=== PATIENT | female | born 1980 | race Caucasian/White ===

== ENCOUNTER 2016-08-11 08:51 | Emergency (ER) | payer BC ==
[2016-08-11] MEDS ORDERED: NS 0.9% 1000 ML* 1,000 ML IV ONE ×2 (11:06→12:41)
[2016-08-11] MEDS ORDERED: Ondansetron INJ* 2 MG/ML VIAL IV ONE ×2 (11:06→14:03)
[2016-08-11 11:50] LABS: Hematocrit 33 % (35-47); Hemoglobin 10.6 g/dl (12.0-16.0); Mean Corpuscular HGB Conc 32 g/dl (31-36); Mean Corpuscular Hemoglobin 27 pg (27-31); Mean Corpuscular Volume 84 fL (80-97); Mean Platelet Volume 9 um3 (7.4-10.4); Red Blood Count 3.88 10^6/ul (4.0-5.4); Red Cell Distribution Width 15 % (10.5-15)
--- NOTE | 2016-08-11 11:54 | RAD ---
Indication: Cough. 2 views of the chest including dual energy PA views demonstrate no mediastinal shift. Heart is of normal size and configuration. Lung brown demonstrate no pleural fluid, pneumonia or pneumothorax. IMPRESSION: No active cardiopulmonary disease is noted.
[2016-08-11 12:06] LABS: ALT 23 U/L (7-52); AST 20 U/L (13-39); Alkaline Phosphatase 49 U/L (34-104); BUN/Creatinine Ratio 8.8 (8-20); Blood Urea Nitrogen 5 mg/dL (6-24); C Reactive Protein 29.19 mg/L (< 5.00); CO2 Carbon Dioxide 26 mmol/L (22-32); Calcium 8.7 mg/dL (8.6-10.3); Chloride 103 mmol/L (101-111); EGFR African American 153.5 (>60); EGFR Non-African American 119.3 (>60); Globulin 3.8 g/dL (2-4); Glucose 89 mg/dL (70-100); Sodium 139 mmol/L (133-145); Total Protein 7.8 g/dL (6.4-8.9)
[2016-08-11 12:08] LABS: Troponin I 0.01 ng/mL (<0.04)
[2016-08-11 12:09] LABS: Urine Bacteria Absent (Absent); Urine Bilirubin Negative (Negative); Urine Glucose Negative (Negative); Urine Nitrite Negative (Negative)
[2016-08-11 12:14] LABS: Anion Gap 10 mmol/L (2-11); Potassium 2.7 mmol/L (3.5-5.0)
[2016-08-11] MEDS ORDERED: KCL 20 MEQ/100 ML IVPREMIX* 20 MEQ/100 ML BAG IV ONE (12:41)
[2016-08-11] MEDS ORDERED: Potassium Chlor TAB* 20 MEQ TAB.ER PO ONE (12:42)
[2016-08-11] MEDS ORDERED: Ondansetron INJ* 2 MG/ML VIAL ONE (14:03)
[2016-08-11] MEDS ORDERED: Acetaminophen TAB* 325 MG PO ONE (15:15)
[2016-08-11] MEDS ORDERED: Acetaminophen TAB* 325 MG ONE (15:17)
[2016-08-11 16:51] VITALS: BP 94/52
--- NOTE | 2016-08-12 07:34 | ED ---
Yuriy Vieyra Adam, scribed for Lake Guzman MD on 08/11/16 at 1051 . Complex/Multi-Sys Presentation - HPI Summary HPI Summary: Pt is a 36 year old female presenting with worsening URI, fever, and N/V. The URI symptoms consist of cough and chest congestion that set on 7 days ago and have been growing worse. She has also had decreased appetite and difficulty tolerating PO intake without vomiting for the past 7 days. She states that she has had a fever that set on 5 days ago. Currently she c/o cough, chest pain, and nausea. She denies diarrhea. She had a flu shot in April. Pt has PMHx of Crohn's but she states that she has not felt this sick in a long time. Surgical Hx of appy and bowel resection. - History Of Current Complaint Chief Complaint: EDGeneral Time Seen by Provider: 08/11/16 10:34 Hx Obtained From: Patient Onset/Duration: Gradual Onset, Lasting Days, Still Present Timing: Constant Severity Currently: Moderate Severity Initially: Mild Aggravating Factor(s): Nothing Alleviating Factor(s): Nothing Associated Signs And Symptoms: Positive: Cough, Chest Pain, Nausea, Vomiting, Fever. Negative: Diarrhea - Allergies/Home Medications Allergies/Adverse Reactions: Allergies Allergy/AdvReac Type Severity Reaction Status Date / Time No Known Allergies Allergy Verified 08/11/16 08:57 PMH/Surg Hx/FS Hx/Imm Hx Endocrine/Hematology History: Denies: Hx Diabetes Cardiovascular History: Denies: Hx Congestive Heart Failure, Hx Hypertension GI History: Reports: Hx Crohn's Disease, Other GI Disorders - CROHNS DISEASE History: Reports: Hx Kidney Stones Denies: Hx Renal Disease Sensory History: Reports: Hx Contacts or Glasses Opthamlomology History: Reports: Hx Contacts or Glasses - Surgical History Surgery Procedure, Year, and Place: BOWEL RESECTION 2010, appendix removed at same time Hx Anesthesia Reactions: No - Immunization History Date of Tetanus Vaccine: unknown Infectious Disease History: No Infectious Disease History: Denies: Traveled Outside the [place] in Last 30 Days - Family History Known Family History: Positive: None - Reviewed and noncontributory - Social History Occupation: Employed Full-time Lives: Alone Alcohol Use: None Hx Substance Use: No Substance Use Type: Reports: None Hx Tobacco Use: No Smoking Status (MU): Never Smoked Tobacco Review of Systems Positive: Fever Positive: Chest Pain Positive: Cough Positive: Vomiting, Nausea. Negative: Diarrhea All Other Systems Reviewed And Are Negative: Yes Physical Exam Triage Information Reviewed: Yes Vital Signs On Initial Exam: Initial Vitals Temp Pulse Resp BP Pulse Ox 98.2 F 91 16 122/65 100 08/11/16 08:52 08/11/16 08:52 08/11/16 08:52 08/11/16 08:52 08/11/16 08:52 Vital Signs Reviewed: Yes Appearance: Positive: Well-Appearing, No Pain Distress Skin: Positive: Warm, Skin Color Reflects Adequate Perfusion, Dry Head/Face: Positive: Normal Head/Face Inspection Eyes: Positive: Normal ENT: Positive: Other - Nasal congestion Neck: Positive: Supple, Nontender Respiratory/Lung Sounds: Positive: Clear to Auscultation, Breath Sounds Present Cardiovascular: Positive: RRR Abdomen Description: Positive: Nontender, Soft Bowel Sounds: Positive: Present Musculoskeletal: Positive: Normal Neurological: Positive: Normal Psychiatric: Positive: Normal, Affect/Mood Appropriate Diagnostics - Vital Signs Vital Signs Temp Pulse Resp BP Pulse Ox 08/11/16 08:52 98.2 F 91 16 122/65 100 - Laboratory Lab Results: Lab Results 08/11/16 08/11/16 08/11/16 Range/Units 11:30 11:30 11:30 WBC 10.0 (3.5-10.8) 10^3/ul RBC 3.88 L (4.0-5.4) 10^6/ul Hgb 10.6 L (12.0-16.0) g/dl Hct 33 L (35-47) % MCV 84 (80-97) fL MCH 27 (27-31) pg MCHC 32 (31-36) g/dl RDW 15 (10.5-15) % Plt Count 175 (150-450) 10^3/ul MPV 9 (7.4-10.4) um3 Neut % (Auto) 82.8 (38-83) % Lymph % (Auto) 13.8 L (25-47) % Simpson % (Auto) 3.2 (1-9) % Eos % (Auto) 0 (0-6) % Baso % (Auto) 0.2 (0-2) % Absolute Neuts (auto) 8.3 H (1.5-7.7) 10^3/ul Absolute Lymphs (auto) 1.4 (1.0-4.8) 10^3/ul Absolute Monos (auto) 0.3 (0-0.8) 10^3/ul Absolute Eos (auto) 0 (0-0.6) 10^3/ul Absolute Basos (auto) 0 (0-0.2) 10^3/ul Absolute Nucleated RBC 0 10^3/ul Nucleated RBC % 0 INR (Anticoag Therapy) 1.02 (0.89-1.11) Sodium (133-145) mmol/L Potassium (3.5-5.0) mmol/L Chloride (101-111) mmol/L Carbon Dioxide (22-32) mmol/L Anion Gap (2-11) mmol/L BUN (6-24) mg/dL Creatinine (0.51-0.95) mg/dL Est GFR ( Amer) (>60) Est GFR (Non-Af Amer) (>60) BUN/Creatinine Ratio (8-20) Glucose (70-100) mg/dL Lactic Acid (0.5-2.0) mmol/L Calcium (8.6-10.3) mg/dL Total Bilirubin (0.2-1.0) mg/dL AST (13-39) U/L ALT (7-52) U/L Alkaline Phosphatase (34-104) U/L Troponin I (<0.04) ng/mL C-Reactive Protein (< 5.00) mg/L Total Protein (6.4-8.9) g/dL Albumin (3.2-5.2) g/dL Globulin (2-4) g/dL Albumin/Globulin Ratio (1-3) Beta HCG, Quant mIU/mL Urine Color Yellow Urine Appearance Clear Urine pH 5.0 (5-9) Ur Specific [place] 1.019 (1.010-1.030) Urine Protein Negative (Negative) Urine Ketones 2+ H (Negative) Urine Blood 3+ H (Negative) Urine Nitrate Negative (Negative) Urine Bilirubin Negative (Negative) Urine Urobilinogen Negative (Negative) Ur Leukocyte Esterase Negative (Negative) Urine WBC (Auto) Trace(0-5/hpf) (Absent) Urine RBC (Auto) 2+(6-10/hpf) H (Absent) Ur Squamous Epith Cells Present H (Absent) Urine Bacteria Absent (Absent) Urine Glucose Negative (Negative) Influenza A (Rapid) (Negative) Influenza B (Rapid) (Negative) 08/11/16 08/11/16 08/11/16 Range/Units 11:30 11:30 11:58 WBC (3.5-10.8) 10^3/ul RBC (4.0-5.4) 10^6/ul Hgb (12.0-16.0) g/dl Hct (35-47) % MCV (80-97) fL MCH (27-31) pg MCHC (31-36) g/dl RDW (10.5-15) % Plt Count (150-450) 10^3/ul MPV (7.4-10.4) um3 Neut % (Auto) (38-83) % Lymph % (Auto) (25-47) % Simpson % (Auto) (1-9) % Eos % (Auto) (0-6) % Baso % (Auto) (0-2) % Absolute Neuts (auto) (1.5-7.7) 10^3/ul Absolute Lymphs (auto) (1.0-4.8) 10^3/ul Absolute Monos (auto) (0-0.8) 10^3/ul Absolute Eos (auto) (0-0.6) 10^3/ul Absolute Basos (auto) (0-0.2) 10^3/ul Absolute Nucleated RBC 10^3/ul Nucleated RBC % INR (Anticoag Therapy) (0.89-1.11) Sodium 139 (133-145) mmol/L Potassium 2.7 L* (3.5-5.0) mmol/L Chloride 103 (101-111) mmol/L Carbon Dioxide 26 (22-32) mmol/L Anion Gap 10 (2-11) mmol/L BUN 5 L (6-24) mg/dL Creatinine 0.57 (0.51-0.95) mg/dL Est GFR ( Amer) 153.5 (>60) Est GFR (Non-Af Amer) 119.3 (>60) BUN/Creatinine Ratio 8.8 (8-20) Glucose 89 (70-100) mg/dL Lactic Acid 0.9 (0.5-2.0) mmol/L Calcium 8.7 (8.6-10.3) mg/dL Total Bilirubin 0.40 (0.2-1.0) mg/dL AST 20 (13-39) U/L ALT 23 (7-52) U/L Alkaline Phosphatase 49 (34-104) U/L Troponin I 0.01 (<0.04) ng/mL C-Reactive Protein 29.19 H (< 5.00) mg/L Total Protein 7.8 (6.4-8.9) g/dL Albumin 4.0 (3.2-5.2) g/dL Globulin 3.8 (2-4) g/dL Albumin/Globulin Ratio 1.1 (1-3) Beta HCG, Quant < 0.60 mIU/mL Urine Color Urine Appearance Urine pH (5-9) Ur Specific [place] (1.010-1.030) Urine Protein (Negative) Urine Ketones (Negative) Urine Blood (Negative) Urine Nitrate (Negative) Urine Bilirubin (Negative) Urine Urobilinogen (Negative) Ur Leukocyte Esterase (Negative) Urine WBC (Auto) (Absent) Urine RBC (Auto) (Absent) Ur Squamous Epith Cells (Absent) Urine Bacteria (Absent) Urine Glucose (Negative) Influenza A (Rapid) Negative (Negative) Influenza B (Rapid) Negative (Negative) Result Diagrams: 08/11/16 11:30 08/11/16 11:30 Lab Statement: Any lab studies that have been ordered have been reviewed, and results considered in the medical decision making process. - Radiology CXR Xray Interpretation: No Acute Changes Radiology Interpretation Completed By: Radiologist - Additional Comments Diagnostic Additional Comments: Potassium - 2.7 Troponin I - 0.01 Influenza A (Rapid) - Negative Influenza B (Rapid) - Negative Complex Multi-Symp Course/Dx Course Of Treatment: Bethany Shaffer presented C/O viral-like symptoms of URI and nausea making her unable to eat. She reported fevers and was afebrile here in the ED. She is on Remicaid for Crohn's and therefore had a septic W/U here which proved negative. Meanwhile she was rehydrated and treated symptomatically. - Diagnoses Provider Diagnoses: Viral syndrome Discharge - Discharge Plan Condition: Stable Disposition: HOME Prescriptions: Ondansetron ODT TAB* [Zofran Odt TAB*] 4 mg PO Q6H PRN #20 tab.odt MDD 4 PRN Reason: Nausea Patient Education Materials: Viral Syndrome (ED) Referrals: Paula FLORES,Levi Jacinto [Primary Care Provider] - Additional Instructions: Follow up with Dr. Mitchell. The documentation as recorded by the Yuriy zaragoza Adam accurately reflects the service I personally performed and the decisions made by me, Lake Guzman MD.
== END 2016-08-11 16:50 | disposition home or self-care (01) ==
LOC: ED 08:51
DX: B34.9 Viral infection, unspecified (principal); R05 Cough; R07.9 Chest pain, unspecified; R11.2 Nausea with vomiting, unspecified
CPT/HCPCS: 36415; 71020; 80053; 81003; 81015; 83605; 84484; 84702; 85025; 85610; 86140; 87502; 96361; 96374; 99283; A9270-GY; J2405; J3480

== ENCOUNTER 2016-08-12 20:53 | Emergency (ER) | payer BC ==
[2016-08-12] MEDS ORDERED: NS 0.9% 1000 ML* 1,000 ML IV ONE (22:59)
[2016-08-12] MEDS ORDERED: Ondansetron INJ* 2 MG/ML VIAL IV ONE (23:00)
[2016-08-12] MEDS ORDERED: guaiFENesin/CODIEN 100MG-10MG* 5 ML UDC PO ONE (23:01)
[2016-08-12 23:31] LABS: Hematocrit 33 % (35-47); Hemoglobin 10.6 g/dl (12.0-16.0); Mean Corpuscular HGB Conc 32 g/dl (31-36); Mean Corpuscular Hemoglobin 28 pg (27-31); Mean Corpuscular Volume 85 fL (80-97); Mean Platelet Volume 9 um3 (7.4-10.4); Red Blood Count 3.87 10^6/ul (4.0-5.4); Red Cell Distribution Width 15 % (10.5-15); White Blood Count 9.1 10^3/ul (3.5-10.8)
[2016-08-12 23:47] LABS: ALT 22 U/L (7-52); AST 19 U/L (13-39); Albumin 3.9 g/dL (3.2-5.2); Alkaline Phosphatase 48 U/L (34-104); BUN/Creatinine Ratio 9.1 (8-20); Blood Urea Nitrogen 5 mg/dL (6-24); CO2 Carbon Dioxide 24 mmol/L (22-32); Calcium 8.6 mg/dL (8.6-10.3); Chloride 105 mmol/L (101-111); EGFR African American 159.9 (>60); EGFR Non-African American 124.4 (>60); Globulin 3.6 g/dL (2-4); Glucose 119 mg/dL (70-100); Lipase 28 U/L (11.0-82.0); Sodium 139 mmol/L (133-145); Total Protein 7.5 g/dL (6.4-8.9)
[2016-08-12 23:49] LABS: Anion Gap 10 mmol/L (2-11); Potassium 2.7 mmol/L (3.5-5.0)
[2016-08-13] MEDS ORDERED: Iohexol 300* (CONTRAST) 10 ML SDV IV ONE (00:12)
[2016-08-13] MEDS ORDERED: Potassium Chlor TAB* 20 MEQ TAB.ER PO ONE ×2 (00:33→04:08)
[2016-08-13 00:55] LABS: Urine Bacteria Absent (Absent); Urine Bilirubin Negative (Negative); Urine Glucose Negative (Negative); Urine Nitrite Negative (Negative)
[2016-08-13] MEDS ORDERED: Pantoprazole TAB (NF) 40 MG TAB PO ONE (00:57)
[2016-08-13] MEDS ORDERED: Pantoprazole IV* 40 MG IV ONE (00:59)
[2016-08-13] MEDS ORDERED: Ondansetron INJ* 2 MG/ML VIAL ONE (02:08)
[2016-08-13] MEDS ORDERED: Ondansetron INJ* 2 MG/ML VIAL IV ONE (02:10)
[2016-08-13] MEDS ORDERED: guaiFENesin/CODIEN 100MG-10MG* 5 ML UDC PO ONE (02:39)
[2016-08-13] MEDS ORDERED: Levofloxacin TAB* 500 MG PO ONE (04:11)
[2016-08-13] MEDS ORDERED: Ondansetron ODT TAB* 4 MG ONE (04:14)
[2016-08-13] MEDS ORDERED: Levofloxacin TAB* 750 MG ONE (04:14)
--- NOTE | 2016-08-13 04:18 | ED ---
Yoshi Vieyra Aidan, scribed for Kirit Zepeda on 08/12/16 at 2312 . Complex/Multi-Sys Presentation - HPI Summary HPI Summary: 36 y/o female presents to the ED with a complaint of acute, constant, moderate, diffuse abdominal tenderness and frequent episodes of vomiting. Yesterday, she was diagnosed with a virus and discharged from the ED. Additionally, she has some CP and a productive cough. Denies any fever. Pt is currently on her period. - History Of Current Complaint Chief Complaint: EDNauseaVomitDiarrh Hx Obtained From: Patient, Family/Director Of Public Works Onset/Duration: Sudden Onset, Lasting Hours - since yesterday, Still Present Timing: Constant - abdominal pain, productive cough, CP, Intermittent, Lasting: - frequent episodes of vomiting Severity Currently: Moderate Severity Initially: Moderate Location: Pain At: - diffuse abdomen Aggravating Factor(s): unknown Alleviating Factor(s): unknown Associated Signs And Symptoms: Positive: Cough - productive, Chest Pain - cvhest tightness, Vomiting, Abdominal Pain. Negative: Fever - Allergies/Home Medications Allergies/Adverse Reactions: Allergies Allergy/AdvReac Type Severity Reaction Status Date / Time No Known Allergies Allergy Verified 08/11/16 08:57 PMH/Surg Hx/FS Hx/Imm Hx Endocrine/Hematology History: Denies: Hx Diabetes Cardiovascular History: Denies: Hx Congestive Heart Failure, Hx Hypertension GI History: Reports: Hx Crohn's Disease, Other GI Disorders - CROHNS DISEASE History: Reports: Hx Kidney Stones Denies: Hx Renal Disease Sensory History: Reports: Hx Contacts or Glasses Opthamlomology History: Reports: Hx Contacts or Glasses - Surgical History Surgery Procedure, Year, and Place: BOWEL RESECTION 2009, appendix removed at same time Hx Anesthesia Reactions: No - Immunization History Date of Tetanus Vaccine: unknown Infectious Disease History: No Infectious Disease History: Denies: Traveled Outside the [place] in Last 30 Days - Family History Known Family History: Positive: Hypertension - Social History Occupation: Employed Full-time Lives: With Family Alcohol Use: None Hx Substance Use: No Substance Use Type: Reports: None Hx Tobacco Use: No Smoking Status (MU): Never Smoked Tobacco Review of Systems Constitutional: Negative Eyes: Negative ENT: Negative Positive: Chest Pain Positive: Cough Positive: Abdominal Pain, Vomiting Genitourinary: Negative Musculoskeletal: Negative Skin: Negative Neurological: Negative Psychological: Normal All Other Systems Reviewed And Are Negative: Yes Physical Exam Triage Information Reviewed: Yes Vital Signs On Initial Exam: Initial Vitals Temp Pulse Resp BP Pulse Ox 98.1 F 81 18 118/72 100 08/12/16 20:53 08/12/16 20:53 08/12/16 20:53 08/12/16 20:53 08/12/16 20:53 Vital Signs Reviewed: Yes Appearance: Positive: Well-Appearing, No Pain Distress Skin: Positive: Warm, Skin Color Reflects Adequate Perfusion, Dry Head/Face: Positive: Normal Head/Face Inspection Eyes: Positive: EOMI, BRAYAN ENT: Positive: Normal ENT inspection Neck: Positive: Supple, Nontender Respiratory/Lung Sounds: Positive: Clear to Auscultation, Breath Sounds Present Cardiovascular: Positive: RRR, Pulses are Symmetrical in both Upper and Lower Extremities Abdomen Description: Positive: Soft. Negative: Nontender - diffuse abdominal tenderness Bowel Sounds: Positive: Present Musculoskeletal: Positive: Strength/ROM Intact Neurological: Positive: Sensory/Motor Intact, Alert, Oriented to Person Place, Time Psychiatric: Positive: Affect/Mood Appropriate AVPU Assessment: Alert Diagnostics - Vital Signs Vital Signs Temp Pulse Resp BP Pulse Ox 08/12/16 20:53 98.1 F 81 18 118/72 100 - Laboratory Result Diagrams: 08/12/16 23:20 08/12/16 23:20 Lab Statement: Any lab studies that have been ordered have been reviewed, and results considered in the medical decision making process. - CT ABD/PEL CT CT Interpretation: Positive (See Comments) - IMPRESSION: PROBABLE BILATERAL LOWER LOBE LOBULAR PNEUMONIA. CT Interpretation Completed By: Radiologist Complex Multi-Symp Course/Dx Course Of Treatment: The patient came in with abdominal pain and her CT scan shows bilateral pneumonia. - Diagnoses Provider Diagnoses: Pneumonia Discharge - Discharge Plan Condition: Stable Disposition: HOME Discharge Disposition Comment: Please follow up with your primary care physician within 3 days Patient Education Materials: Pneumonia (ED) The documentation as recorded by the Yoshi zaragoza Aidan accurately reflects the service I personally performed and the decisions made by Duane oates Emmanuel.
[2016-08-13 04:30] VITALS: BP 122/53
--- NOTE | 2016-08-13 07:52 | RAD ---
INDICATION: Abdominal pain. COMPARISON: Comparison is made with a prior chest x-ray study from August 11, [address] of the abdomen and pelvis from May 14, 2014. TECHNIQUE: A CT scan of the abdomen and pelvis was performed with intravenous and oral contrast following intravenous injection of 87 ml of Omnipaque 300 nonionic contrast. Contiguous axial sections were obtained from the lung bases through the symphysis pubis. Images were reconstructed in the coronal and sagittal planes. FINDINGS: There is a small focal infiltrate in the right lower lobe most consistent with pneumonia. No pleural effusion is present. The liver and spleen are normal in size without significant focal abnormality. There appears to be mild periportal edema within the liver. No calcified gallstones are seen. The pancreas appears to be within normal limits. The kidneys and adrenal glands are normal in size. No hydronephrosis is seen. There is a small 4 mm calcification in the central left kidney most consistent with a nonobstructing renal calculus. No renal mass or cyst is seen. The aorta is normal in caliber and demonstrates homogeneous contrast opacification. No significant enlarged retroperitoneal lymph nodes are seen. The stomach, small and large bowel appear nondistended. The appendix is within normal limits. There is no evidence for diverticulitis or colitis. The uterus is normal in size and anteverted. There are bilateral fallopian tube occlusive devices present. No free intraperitoneal air or fluid is seen. No significant focal osseous abnormality is seen. IMPRESSION: 1. SMALL INFILTRATE IN THE RIGHT LOWER LOBE MOST CONSISTENT WITH PNEUMONIA. 2. NONOBSTRUCTING LEFT RENAL CALCULUS. 3. MILD PERIPORTAL EDEMA WITHIN THE LIVER.
== END 2016-08-13 04:04 | disposition home or self-care (01) ==
LOC: ED 20:53
DX: J18.9 Pneumonia, unspecified organism (principal); R11.10 Vomiting, unspecified; R07.9 Chest pain, unspecified; R05 Cough; R10.9 Unspecified abdominal pain
CPT/HCPCS: 36415; 74177; 80053; 81003; 81015; 83690; 84702; 85025; 96361; 96374; 99284; A9270-GY; J2405; Q9967

== ENCOUNTER 2017-03-07 17:11 | Emergency (ER) | payer BC ==
[2017-03-07 17:19] VITALS: BP 120/66
--- NOTE | 2017-03-07 18:11 | UC ---
Respiratory Complaint HPI - HPI Summary HPI Summary: Pt presents with c/o cough and generalized malaise X 1 week. Pt has history of pneumonia, and crohns disease. She receives Remicade every 8 weeks. - History of Current Complaint Chief Complaint: UCRespiratory Stated Complaint: COUGH Time Seen by Provider: 03/07/17 17:45 Hx Obtained From: Patient Hx Last Menstrual Period: 02/20/17 ?: No Onset/Duration: Gradual Onset, Lasting Days - 7 Severity Initially: Mild Severity Currently: Mild Pain Intensity: 0 Pain Scale Used: 0-10 Numeric Character: Cough: Nonproductive Aggravating Factors: Recumbent Position Associated Signs And Symptoms: Positive: Chills - Risk Factors Pulmonary Embolism Risk Factors: Negative Cardiac Risk Factors: Negative Pseudomonas Risk Factors: Negative Tuberculosis Risk Factors: Negative - Allergies/Home Medications Allergies/Adverse Reactions: Allergies Allergy/AdvReac Type Severity Reaction Status Date / Time No Known Allergies Allergy Verified 03/07/17 17:19 PMH/Surg Hx/FS Hx/Imm Hx Previously Healthy: No - crohns GI/ History: Other - crohns Other GI/ History: crohns - Surgical History Surgical History: Yes Surgery Procedure, Year, and Place: BOWEL RESECTION 2009, appendix removed at same time - Family History Known Family History: Positive: Hypertension - Social History Occupation: Employed Full-time Lives: With Family Alcohol Use: Rare Substance Use Type: None Smoking Status (MU): Never Smoked Tobacco Have You Smoked in the Last Year: No Household Exposure Type: Cigarettes - Immunization History Most Recent Influenza Vaccination: 2013 Most Recent Tetanus Shot: 2010 Most Recent Pneumonia Vaccination: 2005 Review of Systems Constitutional: Chills, Fatigue Skin: Negative Eyes: Negative ENT: Negative Respiratory: Cough Cardiovascular: Negative Gastrointestinal: Negative Genitourinary: Negative Motor: Negative Neurovascular: Negative Musculoskeletal: Negative Neurological: Negative Psychological: Negative All Other Systems Reviewed And Are Negative: Yes Physical Exam Triage Information Reviewed: Yes Appearance: Ill-Appearing Vital Signs: Initial Vital Signs Temp 98.7 F 03/07/17 17:15 Pulse 75 03/07/17 17:15 Resp 15 03/07/17 17:15 BP 120/66 03/07/17 17:15 Pulse Ox 100 03/07/17 17:15 Vital Signs Reviewed: Yes Eye Exam: Normal ENT Exam: Normal Neck exam: Normal Respiratory Exam: Normal Respiratory: Positive: No respiratory distress Cardiovascular Exam: Normal Musculoskeletal Exam: Normal Neurological Exam: Normal Psychological Exam: Normal Skin Exam: Normal UC Diagnostic Evaluation - Laboratory O2 Sat by Pulse Oximetry: 100 Respiratory Course/Dx - Differential Dx/Diagnosis Differential Diagnosis/HQI/PQRI: Bronchitis Provider Diagnoses: Bronchitis Discharge - Discharge Plan Condition: Stable Disposition: HOME Prescriptions: Albuterol HFA INHALER* [Ventolin HFA Inhaler*] 1 - 2 puff INH Q6H PRN #1 mdi PRN Reason: Sob/Wheezing Azithromycin TAB* [Zithromax TAB (Z-ROSS) 250 mg #6 tabs] 2 tab PO .TODAY, THEN 1 DAILY #1 ross Benzonatate CAP* [Tessalon 100 MG CAP*] 100 mg PO Q8H PRN #30 cap PRN Reason: Cough Patient Education Materials: Acute Bronchitis (ED) Referrals: [facility] [Outside] - As Soon As Possible Non Staff,Doctor [Primary Care Provider] - If Needed Additional Instructions: Please follow up with a PCP or return to clinic as needed.
== END 2017-03-07 18:02 | disposition home or self-care (01) ==
LOC: UCCORT 17:11
DX: J40 Bronchitis, not specified as acute or chronic (principal); K50.90 Crohn's disease, unspecified, without complications; Z77.22 Contact with and (suspected) exposure to environmental tobacco smoke (acute) (chronic)
CPT/HCPCS: 99212; G0463

== ENCOUNTER 2017-12-02 07:36 | Emergency (ER) | payer BC ==
[2017-12-02] MEDS ORDERED: NS 0.9% 1000 ML* 2,000 ML IV ONE (07:53)
[2017-12-02] MEDS ORDERED: Ketorolac INJ* 30 MG/ML 1 ML VIAL IV ONE (07:57)
[2017-12-02] MEDS ORDERED: Ondansetron ODT TAB* 4 MG PO ONE (07:57)
[2017-12-02] MEDS ORDERED: HYDROmorphone INJ* 1 MG/ML CARPUJECT SYRINGE IV ONE (07:57)
[2017-12-02] MEDS ORDERED: HYDROmorphone INJ* 2 MG/ML CARPUJECT SYRINGE ONE (08:00)
[2017-12-02 08:20] LABS: ABS Basophils 0 10^3/ul (0-0.2); ABS Eosinophils 0 10^3/ul (0-0.6); ABS Lymphocytes 2.5 10^3/ul (1.0-4.8); ABS Monocytes 0.3 10^3/ul (0-0.8); ABS Neutrophils 2.9 10^3/ul (1.5-7.7); ABS Nucleated RBC 0 10^3/ul; Eosinophil % 0.8 % (0-6); Hematocrit 37 % (35-47); Hemoglobin 12.7 g/dl (12.0-16.0); INR 0.89 (0.77-1.02); Lymphocyte % 43.1 % (25-47); Mean Corpuscular HGB Conc 34 g/dl (31-36); Mean Corpuscular Hemoglobin 31 pg (27-31); Mean Corpuscular Volume 92 fL (80-97); Mean Platelet Volume 8.5 um3 (7.4-10.4); Nucleated Red Blood Cells % 0.1; Platelet Count 232 10^3/ul (150-450); Red Blood Count 4.05 10^6/ul (4.0-5.4); Red Cell Distribution Width 17 % (10.5-15); White Blood Count 5.8 10^3/ul (3.5-10.8)
[2017-12-02 08:26] LABS: EGFR Non-African American 93.6 (>60)
--- NOTE | 2017-12-02 08:48 | RAD ---
Indication: Right flank pain, history of kidney stones. CT of the abdomen and pelvis was performed without oral or IV contrast administration. Coronal and sagittal reconstructed images were obtained. Lung bases demonstrate no pleural fluid, nodules or masses. Heart is of normal size without evidence of pericardial effusion. The liver is normal in size. No focal lesions or intrahepatic ductal dilatation is noted. Common duct is not dilated. No calcified gallstones, pericholecystic fluid or wall thickening is noted. The spleen is normal in size. The pancreas demonstrates no mass or pancreatic ductal dilatation. No adrenal masses are noted. The kidneys demonstrates enlarged right kidney with right hydronephrosis. Right hydroureter is noted. There is a calculus in the right ureter at approximately the L4 level. The calculus measures 3 mm. The left renal collecting system is grossly unremarkable although a 5 mm calculus is noted in the left renal calyx. Aorta and inferior vena cava are unremarkable. No retroperitoneal adenopathy is noted. No dilated loops of bowel are noted. CT of the pelvis demonstrates no retroperitoneal or pelvic lymphadenopathy. Uterus is unremarkable. Fallopian tube obstructive devices are noted. No hernias are noted. The urinary bladder. No hernias are noted. Pelvic ring is unremarkable. The remainder of the bony structures are unremarkable. IMPRESSION: Right hydronephrosis with a 3 mm calculus in the proximal ureter at the L4 level.
[2017-12-02 10:32] LABS: Urine Appearance Cloudy; Urine Blood 3+ (Negative); Urine Color Yellow; Urine Ketones Negative (Negative); Urine Protein 1+(30 mg/dL) (Negative); Urine Specific Gravity 1.021 (1.010-1.030); Urine Urobilinogen Negative (Negative)
--- NOTE | 2017-12-02 10:51 | ED ---
Back Pain - HPI Summary HPI Summary: Patient is a 29-year-old female who presents emergency department for right flank pain 2-3 days. Patient states she is a history of kidney stones and follows with Dr. Milton. She has had with her trip see and stents in the past. Associated symptoms of vomiting. Denies urinary symptoms or fever. Pain is intermittent and became more constant and severe today. No significant past medical history. - History of Current Complaint Chief Complaint: EDFlankPain Stated Complaint: ABD PAIN,VOMITING Time Seen by Provider: 12/02/17 09:53 Hx Obtained From: Patient Hx Last Menstrual Period: 02/20/17 Pain Intensity: 10 - Allergies/Home Medications Allergies/Adverse Reactions: Allergies Allergy/AdvReac Type Severity Reaction Status Date / Time No Known Allergies Allergy Verified 12/02/17 07:45 Home Medications: Home Medications Ferrous Sulfate [Ferrous Sulfate] 325 mg PO DAILY 12/02/17 [History Confirmed ] PMH/Surg Hx/FS Hx/Imm Hx Previously Healthy: Yes Endocrine/Hematology History: Denies: Hx Diabetes Cardiovascular History: Denies: Hx Congestive Heart Failure, Hx Hypertension GI History: Reports: Hx Crohn's Disease, Other GI Disorders - CROHNS DISEASE History: Reports: Hx Kidney Stones Denies: Hx Renal Disease Sensory History: Reports: Hx Contacts or Glasses Opthamlomology History: Reports: Hx Contacts or Glasses - Surgical History Surgery Procedure, Year, and Place: BOWEL RESECTION 2009, appendix removed at same time Hx Anesthesia Reactions: No - Immunization History Date of Tetanus Vaccine: unknown Date of Influenza Vaccine: fall 2015 Infectious Disease History: No Infectious Disease History: Denies: Traveled Outside the [place] in Last 30 Days - Family History Known Family History: Positive: None - Reviewed and noncontributory, Hypertension - Social History Occupation: Employed Full-time Lives: With Family Alcohol Use: Rare Hx Substance Use: No Substance Use Type: Reports: None Hx Tobacco Use: No Smoking Status (MU): Never Smoked Tobacco Have You Smoked in the Last Year: No Review of Systems Constitutional: Negative Negative: Fever, Chills Positive: Abdominal Pain, Vomiting, Nausea. Negative: Diarrhea Genitourinary: Negative Neurological: Negative All Other Systems Reviewed And Are Negative: Yes Physical Exam Triage Information Reviewed: Yes Vital Signs On Initial Exam: Initial Vitals Temp Pulse Resp BP Pulse Ox 97 F 90 16 120/76 98 12/02/17 07:46 12/02/17 07:46 12/02/17 07:46 12/02/17 07:46 12/02/17 07:46 Vital Signs Reviewed: Yes Appearance: Positive: Well-Appearing - Patient lying in bed in no acute distress. Mother present. Skin: Positive: Warm, Dry Head/Face: Positive: Normal Head/Face Inspection Eyes: Positive: Normal Neck: Positive: Supple Abdomen Description: Positive: Nontender, Soft Musculoskeletal: Positive: Normal Neurological: Positive: Normal, CN Intact II-III Psychiatric: Positive: Normal Diagnostics - Vital Signs Vital Signs Temp Pulse Resp BP Pulse Ox 12/02/17 10:43 99 12/02/17 10:17 70 17 114/80 100 12/02/17 10:00 69 13 97 12/02/17 09:35 70 15 114/66 100 12/02/17 09:05 16 116/72 12/02/17 09:00 66 18 100 12/02/17 08:35 70 16 128/80 99 12/02/17 08:14 20 12/02/17 08:04 81 139/64 98 12/02/17 07:46 97 F 90 16 120/76 98 - Laboratory Lab Results: Lab Results 12/02/17 12/02/17 12/02/17 Range/Units 08:02 08:02 08:02 WBC 5.8 (3.5-10.8) 10^3/ul RBC 4.05 (4.0-5.4) 10^6/ul Hgb 12.7 (12.0-16.0) g/dl Hct 37 (35-47) % MCV 92 (80-97) fL MCH 31 (27-31) pg MCHC 34 (31-36) g/dl RDW 17 H (10.5-15) % Plt Count 232 (150-450) 10^3/ul MPV 8.5 (7.4-10.4) um3 Neut % (Auto) 49.5 (38-83) % Lymph % (Auto) 43.1 (25-47) % Darke % (Auto) 5.9 (0-7) % Eos % (Auto) 0.8 (0-6) % Baso % (Auto) 0.7 (0-2) % Absolute Neuts (auto) 2.9 (1.5-7.7) 10^3/ul Absolute Lymphs (auto) 2.5 (1.0-4.8) 10^3/ul Absolute Monos (auto) 0.3 (0-0.8) 10^3/ul Absolute Eos (auto) 0 (0-0.6) 10^3/ul Absolute Basos (auto) 0 (0-0.2) 10^3/ul Absolute Nucleated RBC 0 10^3/ul Nucleated RBC % 0.1 INR (Anticoag Therapy) 0.89 (0.77-1.02) APTT 35.8 (26.0-36.3) seconds Sodium 140 (139-145) mmol/L Potassium 3.9 (3.5-5.0) mmol/L Chloride 110 (101-111) mmol/L Carbon Dioxide 23 (22-32) mmol/L Anion Gap 7 (2-11) mmol/L BUN 13 (6-24) mg/dL Creatinine 0.70 (0.51-0.95) mg/dL Est GFR ( Amer) 120.4 (>60) Est GFR (Non-Af Amer) 93.6 (>60) BUN/Creatinine Ratio 18.6 (8-20) Glucose 98 (70-100) mg/dL Lactic Acid (0.5-2.0) mmol/L Calcium 8.9 (8.6-10.3) mg/dL Magnesium 1.7 L (1.9-2.7) mg/dL Total Bilirubin 0.30 (0.2-1.0) mg/dL AST 18 (13-39) U/L ALT 18 (7-52) U/L Alkaline Phosphatase 56 (34-104) U/L C-Reactive Protein < 1.00 (< 5.00) mg/L Total Protein 7.2 (6.4-8.9) g/dL Albumin 4.0 (3.2-5.2) g/dL Globulin 3.2 (2-4) g/dL Albumin/Globulin Ratio 1.3 (1-3) Lipase 48 (11.0-82.0) U/L Beta HCG, Quant < 0.60 mIU/mL Urine Color Urine Appearance Urine pH (5-9) Ur Specific [place] (1.010-1.030) Urine Protein (Negative) Urine Ketones (Negative) Urine Blood (Negative) Urine Nitrate (Negative) Urine Bilirubin (Negative) Urine Urobilinogen (Negative) Ur Leukocyte Esterase (Negative) Urine WBC (Auto) (Absent) Urine RBC (Auto) (Absent) Ur Squamous Epith Cells (Absent) Urine Bacteria (Absent) Urine Glucose (Negative) 12/02/17 12/02/17 Range/Units 08:02 10:16 WBC (3.5-10.8) 10^3/ul RBC (4.0-5.4) 10^6/ul Hgb (12.0-16.0) g/dl Hct (35-47) % MCV (80-97) fL MCH (27-31) pg MCHC (31-36) g/dl RDW (10.5-15) % Plt Count (150-450) 10^3/ul MPV (7.4-10.4) um3 Neut % (Auto) (38-83) % Lymph % (Auto) (25-47) % Darke % (Auto) (0-7) % Eos % (Auto) (0-6) % Baso % (Auto) (0-2) % Absolute Neuts (auto) (1.5-7.7) 10^3/ul Absolute Lymphs (auto) (1.0-4.8) 10^3/ul Absolute Monos (auto) (0-0.8) 10^3/ul Absolute Eos (auto) (0-0.6) 10^3/ul Absolute Basos (auto) (0-0.2) 10^3/ul Absolute Nucleated RBC 10^3/ul Nucleated RBC % INR (Anticoag Therapy) (0.77-1.02) APTT (26.0-36.3) seconds Sodium (139-145) mmol/L Potassium (3.5-5.0) mmol/L Chloride (101-111) mmol/L Carbon Dioxide (22-32) mmol/L Anion Gap (2-11) mmol/L BUN (6-24) mg/dL Creatinine (0.51-0.95) mg/dL Est GFR ( Amer) (>60) Est GFR (Non-Af Amer) (>60) BUN/Creatinine Ratio (8-20) Glucose (70-100) mg/dL Lactic Acid 1.0 (0.5-2.0) mmol/L Calcium (8.6-10.3) mg/dL Magnesium (1.9-2.7) mg/dL Total Bilirubin (0.2-1.0) mg/dL AST (13-39) U/L ALT (7-52) U/L Alkaline Phosphatase (34-104) U/L C-Reactive Protein (< 5.00) mg/L Total Protein (6.4-8.9) g/dL Albumin (3.2-5.2) g/dL Globulin (2-4) g/dL Albumin/Globulin Ratio (1-3) Lipase (11.0-82.0) U/L Beta HCG, Quant mIU/mL Urine Color Yellow Urine Appearance Cloudy Urine pH 5.0 (5-9) Ur Specific [place] 1.021 (1.010-1.030) Urine Protein 1+(30 mg/dl) A (Negative) Urine Ketones Negative (Negative) Urine Blood 3+ A (Negative) Urine Nitrate Negative (Negative) Urine Bilirubin Negative (Negative) Urine Urobilinogen Negative (Negative) Ur Leukocyte Esterase Negative (Negative) Urine WBC (Auto) Trace(0-5/hpf) (Absent) Urine RBC (Auto) 3+(>10/hpf) A (Absent) Ur Squamous Epith Cells Present A (Absent) Urine Bacteria Absent (Absent) Urine Glucose Negative (Negative) Result Diagrams: 12/02/17 08:02 12/02/17 08:02 Lab Statement: Any lab studies that have been ordered have been reviewed, and results considered in the medical decision making process. Back Pain Course/Dx - Course Course Of Treatment: Patient presenting to the ER for right flank pain and history of kidney stones. Patient has already received IV fluids, pain medication and Zofran. Blood work and CT scan have alredy been performed. Blood work is unremarkable. Urinalysis shows RBCs without evidence of infection. CT scan of the abdomen and pelvis showing a right hydronephrosis with a 3 mm calculus in the proximal ureter, reading per radiology. On reexamination patient is resting comfortably. Her pain is minimal. She did actually pass a probable stone in her urine. She notes she is still having mild discomfort. We'll send home with a few days of hydrocodone, Zofran, Flomax. To increase fluids. To call urology tomorrow if symptoms persist. [employer] was cleared and no red flags noted. To return to the ER for fever, uncontrollable pain or vomiting. Patient understands and agrees with plan. - Diagnoses Differential Diagnosis/HQI/PQRI: Positive: Herniated Disc, Renal Colic, Strain, Sprain Provider Diagnoses: Hydronephrosis, Urolithiasis Discharge - Sign-Out/Discharge Documenting (check all that apply): Discharge/Admit/Transfer - Discharge Plan Condition: Good Disposition: HOME Prescriptions: Hydrocodone/Acetaminophen [Hydrocodone-Acetamin 5-325 mg] 1 each PO Q6H #12 tablet MDD 4 tablets Ondansetron TAB* [Zofran 4 MG Tab*] 4 mg PO Q6H PRN #12 tab PRN Reason: Nausea Tamsulosin CAP* [Flomax CAP*] 0.4 mg PO DAILY #5 cap Patient Education Materials: Kidney Stones (ED) Referrals: No Primary Care Phys,NOPCP [Primary Care Provider] - Cj Milton MD [Medical Doctor] - Additional Instructions: Call your urologist tomorrow if symptoms continue Medication as directed Increase fluids Return to ER for uncontrollable pain, fever, vomiting - Billing Disposition and Condition Condition: GOOD Disposition: HOME
[2017-12-02 10:53] VITALS: BP 119/73
== END 2017-12-02 10:52 | disposition home or self-care (01) ==
LOC: ED 07:36
DX: N13.2 Hydronephrosis with renal and ureteral calculous obstruction (principal); Z87.442 Personal history of urinary calculi
CPT/HCPCS: 36415; 74176; 80053; 81003; 81015; 83605; 83690; 83735; 84702; 85025; 85610; 85730; 86140; 87086; 96361; 96374; 96375; 99283; A9270-GY; J1170; J1885

== ENCOUNTER 2018-10-24 13:43 | Emergency (ER) | payer BC ==
[2018-10-24 14:26] VITALS: BP 120/65
--- NOTE | 2018-10-24 14:36 | UC ---
Throat Pain/Nasal Chandrakant HPI - HPI Summary HPI Summary: 38-year-old woman comes in with a chief complaint of sore throat and swollen tonsils. Started yesterday. Pains worse when she swallows. Pain is less when she doesn't swallow. Minimal rhinorrhea. No complaint of any bodyaches no shortness of breath. - History of Current Complaint Chief Complaint: UCGeneralIllness Stated Complaint: SORE THROAT Time Seen by Provider: 10/24/18 14:21 Hx Last Menstrual Period: 10/19/18 Pain Intensity: 8 - Allergies/Home Medications Allergies/Adverse Reactions: Allergies Allergy/AdvReac Type Severity Reaction Status Date / Time No Known Allergies Allergy Verified 10/24/18 14:20 PMH/Surg Hx/FS Hx/Imm Hx Previously Healthy: Yes Other GI/ History: crohns - Surgical History Surgical History: Yes Surgery Procedure, Year, and Place: BOWEL RESECTION 2009, appendix removed at same time. R wrist - Family History Known Family History: Positive: None - Reviewed and noncontributory, Hypertension - Social History Alcohol Use: Occasionally Substance Use Type: None Smoking Status (MU): Never Smoked Tobacco Have You Smoked in the Last Year: No Household Exposure Type: Cigarettes - Immunization History Most Recent Influenza Vaccination: 2013 Most Recent Tetanus Shot: 2010 Most Recent Pneumonia Vaccination: 2005 Review of Systems All Other Systems Reviewed And Are Negative: Yes Constitutional: Positive: Negative Skin: Positive: Negative Eyes: Positive: Negative ENT: Positive: Sore Throat Respiratory: Positive: Negative Cardiovascular: Positive: Negative Gastrointestinal: Positive: Negative Motor: Positive: Negative Neurovascular: Positive: Negative Musculoskeletal: Positive: Negative Neurological: Positive: Negative Psychological: Positive: Negative Is Patient Immunocompromised?: Yes - on methotrexate Physical Exam Triage Information Reviewed: Yes Appearance: No Pain Distress, Well-Nourished, Ill-Appearing - mild Vital Signs: Initial Vital Signs Temp 97.8 F 10/24/18 14:17 Pulse 99 10/24/18 14:17 Resp 16 10/24/18 14:17 BP 120/65 10/24/18 14:17 Pulse Ox 100 10/24/18 14:17 Vital Signs Reviewed: Yes Eye Exam: Normal Eyes: Positive: Conjunctiva Clear ENT: Positive: Pharyngeal erythema, Tonsillar swelling - 3+ b/l, Other - No peritonsillar abscess on exam. Negative: Muffled voice, Hoarse voice Neck exam: Normal Neck: Positive: Supple Respiratory: Positive: Lungs clear, Normal breath sounds, No respiratory distress Cardiovascular: Positive: RRR Musculoskeletal Exam: Normal Musculoskeletal: Positive: Strength Intact, ROM Intact Neurological Exam: Normal Neurological: Positive: Alert, Muscle Tone Normal Psychological Exam: Normal Psychological: Positive: Normal Response To Family, Age Appropriate Behavior Skin Exam: Normal Throat Pain/Nasal Course/Dx - Differential Dx/Diagnosis Provider Diagnosis: Tonsillitis, Strep pharyngitis Discharge - Sign-Out/Discharge Documenting (check all that apply): Patient Departure All imaging exams completed and their final reports reviewed: No Studies - Discharge Plan Condition: Stable Disposition: HOME Prescriptions: Amoxicillin PO (*) [Amoxicillin 875 MG (*)] 875 mg PO BID #20 tab Patient Education Materials: Strep Throat (ED), Tonsillitis (ED) Referrals: [facility] [place] [facility]IAN REFERRAL [Outside] Additional Instructions: FOLLOW UP WITH YOUR DOCTOR IF NOT COMPLETELY IMPROVED. GET REEVALUATED SOONER FOR ANY WORSENING OF YOUR CONDITION OR ANY QUESTIONS OR CONCERNS. - Billing Disposition and Condition Condition: STABLE Disposition: Home
== END 2018-10-24 14:47 | disposition home or self-care (01) ==
LOC: UCCORT 13:43
DX: J02.0 Streptococcal pharyngitis (principal); J03.90 Acute tonsillitis, unspecified; K50.90 Crohn's disease, unspecified, without complications
CPT/HCPCS: 87651; 99212; G0463